=== PATIENT | female | born 1960 | race Caucasian/White ===

== ENCOUNTER 2021-03-30 15:41 | Emergency (ER) | payer MEDICAID, SELFPAY ==
[2021-03-30 15:42] VITALS: BP 175/77; PULSE 68; RESP 22; O2SAT 92; BMI 28.9
--- NOTE | 2021-03-30 16:03 | XR_ITS ---
PROCEDURE INFORMATION: Exam: XR Chest Exam date and time: 03/30/2021 4:03 PM Age: 61 years old Clinical indication: Other: Congestion TECHNIQUE: Imaging protocol: XR of the chest. Views: 1 view. COMPARISON: No relevant prior studies available. FINDINGS: Lungs: Unremarkable. No consolidation. Granulomatous change. Coarse interstitial lung markings. Pleural spaces: Unremarkable. No pleural effusion. No pneumothorax. Heart/Mediastinum: Unremarkable. No cardiomegaly. Bones/joints: Unremarkable. Tracheostomy tube in place. IMPRESSION: No acute findings.
[2021-03-30 16:25] LABS: Coronavirus 19, PCR Not Detected (NotDetected); Influenza A, PCR Not Detected (NotDetected); Influenza B, PCR Not Detected (NotDetected)
[2021-03-30 16:28] LABS: Basophils # 0.1 K/mm3 (0-0.2); Basophils % 1.2 % (0.1-2.0); Eosinophils # 0.4 K/mm3 (0.0-0.4); Eosinophils % 8.4 % (0.1-12.0); Hematocrit 41.2 % (37.0-47.0); Hemoglobin 13.4 g/dL (12.2-16.2); Lymphocytes # 1.3 K/mm3 (0.7-4.5); Lymphocytes % 26.7 % (10-50); Mean Corpuscular HGB Conc 32.5 g/dL (31.8-35.4); Mean Corpuscular Hemoglobin 32.1 pg (27.0-31.2); Mean Corpuscular Volume 98.8 fl (81-99); Monocytes # 0.3 K/mm3 (0.1-1.0); Monocytes % 5.8 % (1.7-9.3); Neutrophils # 2.9 K/mm3 (1.8-7.8); Neutrophils % 57.9 % (37.0-80.0); Platelet Count 172 K/mm3 (142-424); Red Blood Count 4.17 M/mm3 (4.20-5.40); Red Cell Distribution Width 14.2 % (11.5-17.5)
[2021-03-30 16:36] LABS: Chloride 107 mmol/L (98-107)
[2021-03-30 16:37] LABS: Potassium 4.1 mmoL/L (3.5-5.1); Sodium 140 mmol/L (136-145)
[2021-03-30 16:39] LABS: Alanine Aminotransferase 26 U/L (12-78); Alkaline Phosphatase 140 U/L (38-126); Anion Gap 12.1 mEq/L (5-15); Aspartate Amino Transferase 29 U/L (14-36); Bilirubin,Total 0.6 mg/dl (0.2-1.3); Blood Urea Nitrogen 21 mg/dl (7-17); Carbon Dioxide 25 mmol/L (22.0-30.0); Creatinine Clearance Estimated 67 mL/min (50-200); Estimated Glomerular Filt Rate 125 ml/min (>60); GFR (African American) 151 ML/MIN (>60)
[2021-03-30 16:40] LABS: Albumin Level 4.2 g/dl (3.5-5.0); Albumin/Globulin Ratio 1.2 (1.1-1.8); Calcium 9.4 mg/dl (8.4-10.2); Globulin 3.5 g/dL (1.3-3.2); Glucose 100 mg/dl (74-100); Total Protein,Serum 7.7 g/dl (6.3-8.2)
--- NOTE | 2021-03-30 16:50 | HMH.EDGENADL ---
ED Disposition Clinical Impression: Congestion of respiratory tract Disposition: Home, Self-Care Condition on Discharge: Good Additional Instructions: Sputum culture was sent, results should be available within 2 to 3 days. Suction tracheostomy as needed. Call primary care provider for further care. Referrals: Provider,Referral, [Primary Care Provider] - - Critical Care Critical Care Time: No Attestation: On 03/30/21, the high probability of a clinically significant, sudden or life threatening deterioration of the following system(s) required my full and direct attention, intervention and personal management. The time I documented below is in addition to time spent performing reported procedures but includes the following listed in this critical care notation. Medical Decision Making - Jeremías Inquiry Pt receiving controlled substance: No Vital Signs: 03/30/21 15:42 03/30/21 17:04 03/30/21 17:10 Temperature 98.7 F Temperature Source Rectal Pulse Rate 85 Pulse Rate [Left Radial] 68 Respiratory Rate 22 Blood Pressure [Right Arm] 175/77 H Blood Pressure Mean [Right Arm] 109 Blood Pressure Source [Right Arm] Automatic Cuff Blood Pressure Position [Right Arm] Sitting 02 Sat by Pulse Oximetry 92 L Oxygen Delivery Method Trach Collar/ Tube Oxygen Flow Rate (LPM) 4 - Lab Data Lab Results 03/30/21 16:05: SARS-CoV-2 (PCR) Not detected, Influenza A Untype (PCR) Not detected, Influenza Type B (PCR) Not detected 03/30/21 16:15: WBC 5.0, RBC 4.17 L, Hgb 13.4, Hct 41.2, MCV 98.8, MCH 32.1 H, MCHC 32.5, RDW 14.2, Plt Count 172, MPV 9.0, Neut % (Auto) 57.9, Lymph % (Auto) 26.7, [place] % (Auto) 5.8, Eos % (Auto) 8.4, Baso % (Auto) 1.2, Neut # (Auto) 2.9, Lymph # (Auto) 1.3, [place] # (Auto) 0.3, Eos # (Auto) 0.4, Baso # (Auto) 0.1 03/30/21 16:15: Sodium 140, Potassium 4.1, Chloride 107, Carbon Dioxide 25, Anion Gap 12.1, BUN 21 H, Creatinine 0.50 L, Estimated Creat Clear 67, Estimated GFR 125, Est GFR ( Amer) 151, Glucose 100, Calcium 9.4, Total Bilirubin 0.6, AST 29, ALT 26, Alkaline Phosphatase 140 H, Total Protein 7.7, Albumin 4.2, Globulin 3.5 H, Albumin/Globulin Ratio 1.2 Result diagrams: 03/30/21 16:15 03/30/21 16:15 Orders (Tests/Meds): ED MEDICATIONS Generic Name Dose Route Start Last Admin Trade Name Freq PRN Reason Stop Dose Admin Sodium Chloride 3 ml 03/30/21 17:01 Sodium Chloride 3% 15ml [facility] 04/29/21 17:00 ONCE PRN INDUCE SPUTUM COLLECTION Discontinued Medications Generic Name Dose Route Start Last Admin Trade Name Freq PRN Reason Stop Dose Admin Albuterol/Ipratropium 3 ml 03/30/21 16:57 03/30/21 17:10 Ipratropium/Albuterol 3 Ml [facility] 03/30/21 16:58 3 ml ONCE ONE Administration ORDERS Category Date Time Status Sputum Culture & Gram Stain Stat Micro 03/30/21 17:05 Results - Radiology Data #1 Image(s): Chest Image Reviewed: Yes I reviewed the patient's radiology image, Yes I have reviewed radiologist's interpretation PROCEDURE INFORMATION: Exam: XR Chest Exam date and time: 03/30/2021 4:03 PM Age: 61 years old Clinical indication: Other: Congestion TECHNIQUE: Imaging protocol: XR of the chest. Views: 1 view. COMPARISON: No relevant prior studies available. FINDINGS: Lungs: Unremarkable. No consolidation. Granulomatous change. Coarse interstitial lung markings. Pleural spaces: Unremarkable. No pleural effusion. No pneumothorax. Heart/Mediastinum: Unremarkable. No cardiomegaly. Bones/joints: Unremarkable. Tracheostomy tube in place. IMPRESSION: No acute findings. Medical Decision Narrative: No findings of pneumonia on chest x-ray. Normal WBC. Sputum culture sent. She will return to long-term with suctioning of tracheostomy as needed. General Adult HPI - General Chief complaint: Weakness Stated comp
[2021-03-30 17:04] VITALS: TEMP 37.1
[2021-03-30 17:10] VITALS: PULSE 85
--- NOTE | 2021-03-30 17:24 | PC.NURSE ---
Respiratory obtained sputum sample.
[2021-03-30 20:11] VITALS: BP 169/72; PULSE 62; RESP 22; TEMP 37.1; O2SAT 95
== END 2021-03-30 20:14 | disposition home or self-care (01) ==
PROVIDERS: Emergency Provider Emergency Medicine
DX: J98.8 Other specified respiratory disorders (principal); R06.2 Wheezing; Z93.0 Tracheostomy status
CPT/HCPCS: 71045; 80053; 85025; 87070; 87077; 87186; 87205; 99283; C9803; U0003; U0005

== ENCOUNTER → 2021-03-31 14:24 | Outpatient (CLI) | payer MEDICAID, SELFPAY ==
--- NOTE | 2021-03-31 14:27 | FL_ITS ---
PROCEDURE: FL FEEDING TUBE CLINICAL INDICATION: replaced feeeding tube COMPARISON: None FINDINGS: Fluoro time: 22 seconds. Percutaneous gastrostomy tube is present on the roundhouse firer/fireman image. Approximately 20 cc of mixture of Gastrografin and water was injected into the feeding tube which did appear to be in good position in the region of the body of the stomach. There is no evidence of contrast extravasation. IMPRESSION: Good position of the percutaneous gastrostomy tube with no contrast extravasation Dictated by: Sunday Garner MD 03/31/2021 16:16 Sunday Garner MD in [place] 03/31/2021 16:16
== END ==
PROVIDERS: PCP Family Medicine; Visit Provider Surgery
DX: Z46.59 Encounter for fitting and adjustment of other gastrointestinal appliance and device (principal)
CPT/HCPCS: 49465

== ENCOUNTER 2021-07-04 21:46 | Emergency (ER) | payer MEDICAID, SELFPAY ==
[2021-07-04 21:46] VITALS: BP 128/83; PULSE 93; RESP 21; O2SAT 95
--- NOTE | 2021-07-04 22:17 | XR_ITS ---
PROCEDURE INFORMATION: Exam: XR Chest Exam date and time: 07/04/2021 10:17 PM Age: 61 years old Clinical indication: Shortness of breath and wheezing; Additional info: SOA, wheezing TECHNIQUE: Imaging protocol: XR of the chest. Views: 1 view. COMPARISON: CR XR CHEST PORTABLE 03/30/2021 4:15 PM FINDINGS: Tubes, catheters and devices: The tracheostomy tube is unchanged. There is a catheter projecting over the right side of the neck and right chest/abdomen. Lungs: Low lung volumes. No focal consolidations or infiltrates. Pleural spaces: Unremarkable. No pleural effusion. No pneumothorax. Heart/Mediastinum: Unremarkable. No cardiomegaly. Bones/joints: Unremarkable. IMPRESSION: No acute cardiopulmonary findings.
--- NOTE | 2021-07-04 22:20 | ECG_ITS ---
APPROVED REPORT Exam: Resting ECG HR:92 bpm ECG Measurements Heart Rate 92 AXES NM 127 P 46 QRSd 77 QRS 7 QT 347 T 27 QTc 397 Conclusion SINUS RHYTHM LOW QRS VOLTAGE IN PRECORDIAL LEADS [QRS DEFLECTION < 1.0 mV IN CHEST LEADS] NONSPECIFIC T-WAVE ABNORMALITY BORDERLINE ECG UNCONFIRMED REPORT Electronically signed by : Momo Ackerman MD 07/05/2021 22:22:11
[2021-07-04 22:31] VITALS: BP 207/116; PULSE 97; RESP 18; O2SAT 97
[2021-07-04 22:43] LABS: Basophils % 0.7 % (0.1-2.0); Eosinophils # 0.4 K/mm3 (0.0-0.4); Hematocrit 42.9 % (37.0-47.0); Hemoglobin 13.5 g/dL (12.2-16.2); Lymphocytes # 1.5 K/mm3 (0.7-4.5); Lymphocytes % 23.1 % (10-50); Mean Corpuscular HGB Conc 31.5 g/dL (31.8-35.4); Mean Corpuscular Hemoglobin 31.6 pg (27.0-31.2); Mean Corpuscular Volume 100.5 fl (81-99); Mean Platelet Volume 8.9 fl (7.4-10.4); Monocytes # 0.5 K/mm3 (0.1-1.0); Monocytes % 7.6 % (1.7-9.3); Neutrophils # 4.1 K/mm3 (1.8-7.8); Neutrophils % 62.7 % (37.0-80.0); Platelet Count 189 K/mm3 (142-424); Red Blood Count 4.27 M/mm3 (4.20-5.40); Red Cell Distribution Width 14.2 % (11.5-17.5); White Blood Count 6.5 K/mm3 (4.8-10.8)
[2021-07-04 22:59] LABS: Alanine Aminotransferase 30 U/L (12-78); Albumin Level 4.7 g/dl (3.5-5.0); Albumin/Globulin Ratio 1.4 (1.1-1.8); Alkaline Phosphatase 141 U/L (38-126); Anion Gap 14.2 mEq/L (5-15); Aspartate Amino Transferase 35 U/L (14-36); Bilirubin,Total 0.7 mg/dl (0.2-1.3); Blood Urea Nitrogen 32 mg/dl (7-17); Calcium 10.2 mg/dl (8.4-10.2); Carbon Dioxide 26 mmol/L (22.0-30.0); Chloride 105 mmol/L (98-107); Creatinine Clearance Estimated 2 mL/min (50-200); Estimated Glomerular Filt Rate 101 ml/min (>60); GFR (African American) 122 ML/MIN (>60); Globulin 3.3 g/dL (1.3-3.2); Glucose 109 mg/dl (74-100); Potassium 4.2 mmoL/L (3.5-5.1); Sodium 141 mmol/L (136-145)
[2021-07-04 23:01] VITALS: BP 214/121; PULSE 96; RESP 18; O2SAT 96
[2021-07-04 23:05] LABS: C-Reactive Protein 52.9 mg/L (0-4)
[2021-07-04 23:15] LABS: Troponin I < 0.01 ng/ml (0.00-0.034)
[2021-07-04 23:19] LABS: Erythrocyte Sedimentation Rate 61 mm/hr (0-30); Procalcitonin 0.118 ng/mL (0.0-2.0)
[2021-07-04 23:22] LABS: Coronavirus 19, PCR Not Detected (NotDetected); Influenza A, PCR Not Detected (NotDetected); Influenza B, PCR Not Detected (NotDetected)
--- NOTE | 2021-07-04 23:25 | HMH.EDSOB ---
ED Disposition Clinical Impression: Acute exacerbation of chronic obstructive airways disease Disposition: Home, Self-Care Condition on Discharge: Fair Instructions: DI for Chronic Obstructive Pulmonary Disease Additional Instructions: use meds and check cultures Prescriptions: cephALEXin [cephALEXin 500mg capsule*] 500 mg PO TID #30 cap Prescription Printed clindamycin HCL [Cleocin HCl] 300 mg PO TID #30 cap Prescription Printed Referrals: Zelalem Boykin [Primary Care Provider] - - Critical Care Critical Care Time: No Attestation: On 07/04/21, the high probability of a clinically significant, sudden or life threatening deterioration of the following system(s) required my full and direct attention, intervention and personal management. The time I documented below is in addition to time spent performing reported procedures but includes the following listed in this critical care notation. Medical Decision Making - Medical Records Medical records reviewed: Yes: I reviewed the patient's medical records. - Jeremías Inquiry Pt receiving controlled substance: No Vital Signs: 07/04/21 21:46 07/04/21 22:31 07/04/21 23:01 Temperature Temperature Source Pulse Rate 97 H 96 H Pulse Rate [Right] 93 H Respiratory Rate 21 18 18 Blood Pressure 207/116 H 214/121 H Blood Pressure [Right Arm] 128/83 Blood Pressure Mean 146 152 Blood Pressure Mean [Right Arm] 98 02 Sat by Pulse Oximetry 95 97 96 Oxygen Delivery Method Trach Collar/ Tube Oxygen Flow Rate (LPM) 3 07/04/21 23:27 07/04/21 23:31 07/05/21 00:01 Temperature 99.8 F H Temperature Source Rectal Pulse Rate 94 H 94 H Pulse Rate [Right] Respiratory Rate 18 18 Blood Pressure 226/65 H 212/93 H Blood Pressure [Right Arm] Blood Pressure Mean 121 132 Blood Pressure Mean [Right Arm] 02 Sat by Pulse Oximetry 96 96 Oxygen Delivery Method Oxygen Flow Rate (LPM) - Lab Data Lab results reviewed: Yes: I reviewed the patient's lab results. Lab Results 07/04/21 22:24: WBC 6.5, RBC 4.27, Hgb 13.5, Hct 42.9, MCV 100.5 H, MCH 31.6 H, MCHC 31.5 L, RDW 14.2, Plt Count 189, MPV 8.9, Neut % (Auto) 62.7, Lymph % (Auto) 23.1, [place] % (Auto) 7.6, Eos % (Auto) 6.0, Baso % (Auto) 0.7, Neut # (Auto) 4.1, Lymph # (Auto) 1.5, [place] # (Auto) 0.5, Eos # (Auto) 0.4, Baso # (Auto) 0.0, ESR 61 H 07/04/21 22:24: Sodium 141, Potassium 4.2, Chloride 105, Carbon Dioxide 26, Anion Gap 14.2, BUN 32 H, Creatinine 0.60, Estimated Creat Clear 2, Estimated GFR 101, Est GFR ( Amer) 122, Glucose 109 H, Calcium 10.2, Total Bilirubin 0.7, AST 35, ALT 30, Alkaline Phosphatase 141 H, Troponin I < 0.01, C-Reactive Protein 52.9 H, Total Protein 8.0, Albumin 4.7, Globulin 3.3 H, Albumin/Globulin Ratio 1.4, Procalcitonin 0.118 07/04/21 22:24: Lactate 1.0 07/04/21 22:50: SARS-CoV-2 (PCR) Not detected, Influenza A Untype (PCR) Not detected, Influenza Type B (PCR) Not detected 07/04/21 23:27: Specimen Source R/r, O2 % 35, ABG pH 7.42, ABG pCO2 36.2, ABG pO2 80.9, ABG HCO3 22.8, ABG Total CO2 24.0, ABG O2 Saturation 96, ABG Base Excess -1.7, Sunday Test Y 07/04/21 23:34: Urine Color Yellow, Urine Appearance Clear, Urine pH 5.5, Ur Specific [place] >= 1.030, Urine Protein Trace, Urine Glucose (UA) Negative, Urine Ketones Negative, Urine Blood Negative, Urine Nitrate Negative, Urine Bilirubin Negative, Urine Urobilinogen 0.2, Ur Leukocyte Esterase Negative, Urine WBC 3-5, Ur Squamous Epith Cells 3-5, Urine Bacteria 1+ Result diagrams: 07/04/21 22:24 07/04/21 22:24 Orders (Tests/Meds): ED MEDICATIONS Generic Name Dose Route Start Last Admin Trade Name Freq PRN Reason Stop Dose Admin Ceftriaxone Sodium 1 gm/ 50 mls @ 100 mls/hr 07/05/21 01:15 Sodium Chloride IV 07/19/21 01:14 Q24H RACHEL Sodium Chloride 3 ml 07/04/21 22:21 Sodium Chloride 3% 15ml Neb I[facility] 08/03/21 22:20 ONCE PRN INDUCE SPUTUM COLLECTION Discontinued Medications Jaylin
[2021-07-04 23:27] VITALS: TEMP 37.7
[2021-07-04 23:31] VITALS: BP 226/65; PULSE 94; RESP 18; O2SAT 96
--- NOTE | 2021-07-04 23:31 | PC.NURSE ---
SPUTUM SENT TO LAB
[2021-07-04 23:41] LABS: Appearance,Urine CLEAR (Clear); Bilirubin,Urine Negative (Negative); Blood, Urine Negative (Negative); Color,Urine YELLOW (Yellow); Glucose,Urine (UA) Negative (Negative); Ketones,Urine Negative (Negative); Leukocyte Esterase,Urine Negative (Negative); Microscopic, Urine URINE MICROSCOPIC (MICROSCOPIC); Nitrate,Urine Negative (Negative); PH,Urine 5.5 (5.0-8.5); Protein,Urine TRACE (Negative); Specific Gravity, Urine >= 1.030 (1.005-1.030); Urobilinogen,Urine 0.2 EU/dl (0.2)
[2021-07-04 23:47] LABS: ABG Base Excess -1.7 mmol/L (-2.4-2.3); ABG HCO3 22.8 mmhg (22.0-26.0); ABG Oxygen Saturation 96 % (90-100); ABG PCO2 36.2 mmhg (35.0-45.0); ABG PH 7.42 mmol/L (7.35-7.45); ABG PO2 80.9 mmhg (80-100)
[2021-07-04 23:48] LABS: Allen's Test Y; Oxygen 35 %; Source R/R
[2021-07-05 00:01] VITALS: BP 212/93; PULSE 94; RESP 18; O2SAT 96
[2021-07-05 00:44] LABS: Bacteria,Urine 1+ /lpf
[2021-07-05 01:35] VITALS: BP 135/86; PULSE 92; RESP 18; TEMP 37.2; O2SAT 96
== END 2021-07-05 02:04 | disposition home or self-care (01) ==
PROVIDERS: Emergency Provider Emergency Medicine; PCP Family Medicine
DX: J44.1 Chronic obstructive pulmonary disease with (acute) exacerbation (principal); F03.90 Unspecified dementia, unspecified severity, without behavioral disturbance, psychotic disturbance, mood disturbance, and anxiety; Z20.822 Contact with and (suspected) exposure to COVID-19
CPT/HCPCS: 36415; 71045; 80053; 81001; 82803; 83605; 84145; 84484; 85025; 85651; 86140; 87040; 87070; 87077; 87186; 87205; 93005; 96365; 96375; 99285; C9803; J0696; U0003; U0005

== ENCOUNTER 2021-07-11 16:57 | Emergency (ER) | payer MEDICAID, SELFPAY ==
--- NOTE | 2021-07-11 17:01 | HMH.EDGENADL ---
ED Disposition Clinical Impression: History of vomiting Disposition: Home, Self-Care Condition on Discharge: Good Additional Instructions: follow up pcp - Critical Care Critical Care Time: No Attestation: On , the high probability of a clinically significant, sudden or life threatening deterioration of the following system(s) required my full and direct attention, intervention and personal management. The time I documented below is in addition to time spent performing reported procedures but includes the following listed in this critical care notation. Medical Decision Making - Medical Records Medical records reviewed: Yes: I reviewed the patient's medical records. - Jeremías Inquiry Pt receiving controlled substance: No Vital Signs: 07/11/21 17:11 07/11/21 17:30 07/11/21 18:00 Temperature 98.5 F Temperature Source Oral Pulse Rate 86 89 Pulse Rate [Left Radial] 87 Respiratory Rate 20 Blood Pressure 163/80 H 123/80 Blood Pressure [Right Arm] 146/76 H Blood Pressure Mean [Right Arm] 99 Blood Pressure Source Automatic Cuff Automatic Cuff Blood Pressure Source [Right Arm] Automatic Cuff Blood Pressure Position Sitting Sitting Blood Pressure Position [Right Arm] Supine 02 Sat by Pulse Oximetry 97 98 96 Oxygen Delivery Method Room Air Trach Collar/ Tube Trach Collar/ Tube - Lab Data Lab Results 07/11/21 17:26: WBC 7.6, RBC 4.30, Hgb 13.8, Hct 43.2, MCV 100.4 H, MCH 32.0 H, MCHC 31.8, RDW 14.2, Plt Count 230, MPV 9.2, Neut % (Auto) 66.0, Lymph % (Auto) 25.8, [place] % (Auto) 4.1, Eos % (Auto) 3.0, Baso % (Auto) 1.0, Neut # (Auto) 5.0, Lymph # (Auto) 2.0, [place] # (Auto) 0.3, Eos # (Auto) 0.2, Baso # (Auto) 0.1 07/11/21 17:26: Sodium 143, Potassium 4.4, Chloride 110 H, Carbon Dioxide 24, Anion Gap 13.4, BUN 29 H, Creatinine 0.70, Estimated Creat Clear 67, Estimated GFR 85, Est GFR ( Amer) 102, Glucose 115 H, Calcium 9.7, Total Bilirubin 0.4, AST 24, ALT 27, Alkaline Phosphatase 124, Total Protein 8.2, Albumin 4.5, Globulin 3.7 H, Albumin/Globulin Ratio 1.2 07/11/21 17:29: Stool Occult Blood Negative Result diagrams: 07/11/21 17:26 07/11/21 17:26 Orders (Tests/Meds): ORDERS Category Date Time Status Covid-19 Nasal PCR ([facility]) Routine Lab 07/11/21 17:02 Received Medical Decision Narrative: reeval, stable exam and vitals, no source for bleeding General Adult HPI - General Stated complaint: gi bleed Time Seen by Provider: 07/11/21 17:01 Source of Information: EMS Limitations: Physical Limitations - History of Present Illness HPI narrative: from [place] limited history due to pt baseline ms reports of coffee ground emesis , nothing further Radiation: non-radiation Severity: mild Relieving factors: none Exacerbating factors: none Associated symptoms: denies other symptoms - Related Data Home Medications Medication Instructions Recorded Confirmed acetaminophen 500 mg capsule 500 mg PO Q6H PRN 03/31/21 03/31/21 amantadine HCl 50 mg/5 mL oral 100 mg PO DAILY 03/31/21 03/31/21 solution baclofen 5 mg tablet 5 mg PO TID 03/31/21 03/31/21 docusate sodium 100 mg capsule 100 mg PO DAILY 03/31/21 03/31/21 guaifenesin 200 mg/5 mL oral liquid 200 mg PO Q4H PRN 03/31/21 03/31/21 heparin (porcine) 5,000 unit/mL 5,000 unit SQ Q12H 03/31/21 03/31/21 injection solution hyoscyamine sulfate 0.125 mg/mL 1 ml PO QAC 03/31/21 03/31/21 oral drops senna-docusate sodium capsule cap PO 03/31/21 Previous Rx's Medication Instructions Recorded cephALEXin [cephALEXin 500mg 500 mg PO TID #30 cap 07/05/21 capsule*] clindamycin HCL [Cleocin HCl] 300 mg PO TID #30 cap 07/05/21 Allergies Allergy/AdvReac Type Severity Reaction Status Date / Time No Known Allergies Allergy Verified 03/31/21 14:04 [facility] History - Hepatitis A Screen Attestation statement:: This patient has been screened for Hepatitis A risk factors. Medical History: Reports:: Dementia Othe
--- NOTE | 2021-07-11 17:02 | XR_ITS ---
PROCEDURE INFORMATION: Exam: XR Chest Exam date and time: 07/11/2021 5:02 PM Age: 61 years old Clinical indication: Cough; Patient HX: Patient has paralysis: Unable to move or hold arms out of the way TECHNIQUE: Imaging protocol: XR of the chest. Views: 1 view. COMPARISON: CR XR CHEST PORTABLE 07/04/2021 10:29 PM FINDINGS: Tubes, catheters and devices: Tracheostomy tube is again noted as well as ventriculoperitoneal shunt tubing. Lungs: Lungs are hypoinflated. No focal consolidation is apparent. Pleural spaces: No pleural effusion. Heart/Mediastinum: No cardiomegaly. Bones/joints: Scoliosis and skeletal degeneration are again noted. IMPRESSION: Stable appearance of chest without x-ray evidence of pneumonia or congestive heart failure.
[2021-07-11 17:11] VITALS: BP 146/76; PULSE 87; RESP 20; TEMP 36.9; O2SAT 97; BMI 30.8
[2021-07-11 17:30] VITALS: BP 163/80; PULSE 86; O2SAT 98
[2021-07-11 17:47] LABS: Basophils # 0.1 K/mm3 (0-0.2); Eosinophils # 0.2 K/mm3 (0.0-0.4); Hematocrit 43.2 % (37.0-47.0); Hemoglobin 13.8 g/dL (12.2-16.2); Lymphocytes % 25.8 % (10-50); Mean Corpuscular HGB Conc 31.8 g/dL (31.8-35.4); Mean Corpuscular Volume 100.4 fl (81-99); Mean Platelet Volume 9.2 fl (7.4-10.4); Monocytes # 0.3 K/mm3 (0.1-1.0); Monocytes % 4.1 % (1.7-9.3); Platelet Count 230 K/mm3 (142-424); Red Cell Distribution Width 14.2 % (11.5-17.5); White Blood Count 7.6 K/mm3 (4.8-10.8)
[2021-07-11 17:49] LABS: Occult Blood,Stool Negative (Negative)
[2021-07-11 17:58] LABS: Chloride 110 mmol/L (98-107); Potassium 4.4 mmoL/L (3.5-5.1); Sodium 143 mmol/L (136-145)
[2021-07-11 18:00] VITALS: BP 123/80; PULSE 89; O2SAT 96
[2021-07-11 18:00] LABS: Alanine Aminotransferase 27 U/L (12-78); Blood Urea Nitrogen 29 mg/dl (7-17); Creatinine Clearance Estimated 67 mL/min (50-200); Estimated Glomerular Filt Rate 85 ml/min (>60); GFR (African American) 102 ML/MIN (>60)
[2021-07-11 18:01] LABS: Albumin Level 4.5 g/dl (3.5-5.0); Albumin/Globulin Ratio 1.2 (1.1-1.8); Alkaline Phosphatase 124 U/L (38-126); Anion Gap 13.4 mEq/L (5-15); Aspartate Amino Transferase 24 U/L (14-36); Bilirubin,Total 0.4 mg/dl (0.2-1.3); Calcium 9.7 mg/dl (8.4-10.2); Carbon Dioxide 24 mmol/L (22.0-30.0); Globulin 3.7 g/dL (1.3-3.2); Glucose 115 mg/dl (74-100); Total Protein,Serum 8.2 g/dl (6.3-8.2)
[2021-07-11 18:50] VITALS: BP 146/78; PULSE 87; RESP 20; TEMP 37.2; O2SAT 97
== END 2021-07-11 19:29 | disposition home or self-care (01) ==
PROVIDERS: Emergency Provider Emergency Medicine; PCP Family Medicine
DX: K92.2 Gastrointestinal hemorrhage, unspecified (principal)
CPT/HCPCS: 71045; 80053; 82272; 85025; 99283; C9803; G0328; U0003; U0005

== ENCOUNTER 2021-07-14 08:10 | Emergency (ER) | payer MEDICAID, SELFPAY ==
[2021-07-14 08:10] VITALS: BP 144/54; PULSE 83; RESP 16; TEMP 36.1; O2SAT 98; BMI 30.1
--- NOTE | 2021-07-14 08:14 | HMH.EDGENADL ---
ED Disposition Clinical Impression: Coffee ground emesis Disposition: Home, Self-Care Condition on Discharge: Good Additional Instructions: Dr. Boykin states that he will see the patient on rounds tomorrow for further care. No change in medications at this time. Referrals: Provider,Referral, [Primary Care Provider] - - Critical Care Critical Care Time: No Attestation: On , the high probability of a clinically significant, sudden or life threatening deterioration of the following system(s) required my full and direct attention, intervention and personal management. The time I documented below is in addition to time spent performing reported procedures but includes the following listed in this critical care notation. Medical Decision Making - Jeremías Inquiry Pt receiving controlled substance: No Vital Signs: 07/14/21 08:10 07/14/21 08:38 07/14/21 09:44 Temperature 97 F L Temperature Source Rectal Pulse Rate 87 84 Pulse Rate [Radial] 83 Respiratory Rate 16 17 Blood Pressure 145/65 H Blood Pressure [Right Arm] 144/54 H Blood Pressure Mean [Right Arm] 84 Blood Pressure Position [Right Arm] Sitting 02 Sat by Pulse Oximetry 98 94 L Oxygen Delivery Method Trach Collar/ Tube Oxygen Flow Rate (LPM) 6 - Lab Data Lab Results 07/14/21 08:12: Gastric Occult Blood Positive 07/14/21 08:20: Stool Occult Blood Negative 07/14/21 08:36: WBC 8.5, RBC 4.37, Hgb 13.8, Hct 43.5, MCV 99.4 H, MCH 31.5 H, MCHC 31.7 L, RDW 14.3, Plt Count 220, MPV 9.2, Neut % (Auto) 68.9, Lymph % (Auto) 22.3, [place] % (Auto) 4.4, Eos % (Auto) 3.7, Baso % (Auto) 0.7, Neut # (Auto) 5.9, Lymph # (Auto) 1.9, [place] # (Auto) 0.4, Eos # (Auto) 0.3, Baso # (Auto) 0.1 07/14/21 08:36: Sodium 144, Potassium 4.3, Chloride 110 H, Carbon Dioxide 25, Anion Gap 13.3, BUN 34 H, Creatinine 0.70, Estimated Creat Clear 70, Estimated GFR 85, Est GFR ( Amer) 102, Glucose 121 H, Calcium 9.9, Total Bilirubin 0.4, AST 27, ALT 29, Alkaline Phosphatase 132 H, Total Protein 8.0, Albumin 4.7, Globulin 3.3 H, Albumin/Globulin Ratio 1.4 07/14/21 08:36: Lipase 34 07/14/21 08:36: PT 11.5, INR 1.02, APTT 26.2 Result diagrams: 07/14/21 08:36 07/14/21 08:36 Orders (Tests/Meds): ED MEDICATIONS Generic Name Dose Route Start Last Admin Trade Name Freq PRN Reason Stop Dose Admin Sodium Chloride 3 ml 07/14/21 10:15 Sodium Chloride 3% 15ml Neb IH 08/13/21 10:14 ONCE PRN INDUCE SPUTUM COLLECTION ORDERS Category Date Time Status Urinalysis-Acute [Urinalysis and Microscopic] Stat Lab 07/14/21 08:26 Ordered Sputum Culture & Gram Stain Stat Micro 07/14/21 10:29 Received - Radiology Data #1 Image(s): Chest Image Reviewed: Yes I have reviewed radiologist's interpretation FINAL REPORT CLINICAL HISTORY: vomiting COMPARISON: July 11, 2021 FINDINGS: The patient is rotated to the right. A tracheostomy tube is present. The heart size is normal. The mediastinum is normal. The lungs are underinflated. There is no definite infiltrate. There are no pleural effusions. There is no pneumothorax. There is no osseous abnormality. IMPRESSION: No definite infiltrate. Reviewed, Interpreted and Dictated by Cj Nuñez MD Transcribed by Jose Carrillo Authenticated by Cj Nuñez MD on 07/14/2021 10:23:23 AM [facility] - CT Data CT Scan: Abdomen, Pelvis Time Received: 10:[address] Reviewed: Yes: I have viewed the radiologist's interpretation Findings Narrative: Procedure(s): CT abdomen pelvis wo con Accession Number(s): [id number] cc: Cj Nuñez MD; Dominique Zimmerman MD; Brian Caballero MD~ FINAL REPORT TECHNIQUE: Axial images through the abdomen and pelvis were performed without contrast. This study was performed with techniques to keep radiation doses as low as reasonably achievable, (ALARA). Individualized dose reduction techniques using automated exposure control or adjustment
--- NOTE | 2021-07-14 08:26 | CT_ITS ---
FINAL REPORT TECHNIQUE: Axial images through the abdomen and pelvis were performed without contrast. This study was performed with techniques to keep radiation doses as low as reasonably achievable, (ALARA). Individualized dose reduction techniques using automated exposure control or adjustment of mA and/or kV according to the patient's size were employed. CLINICAL HISTORY: vomiting, FINDINGS: Abdomen: Atelectasis is seen in the right upper lobe and right lung base. A DERRICK OPERATOR shunt is seen looped in the anterior right hemiabdomen. A gastrostomy feeding tube is seen in the stomach. The liver parenchyma is homogeneous. There are calcified granulomas in the spleen. The pancreas and adrenals are unremarkable. There is a 6 mm nonobstructing right renal stone. Pelvis: There are stones in the dependent portion of the urinary bladder measuring up to 5 mm. The appendix is not visualized. There is no pelvic mass or inflammation. IMPRESSION: DERRICK OPERATOR shunt and gastrostomy tubes as described. Nonobstructing right renal stone. Stones in the urinary bladder. Reviewed, Interpreted and Dictated by Cj Nuñez MD Transcribed by Jose Carrillo Authenticated by Cj Nuñez MD on 07/14/2021 10:23:[address] [facility]
[2021-07-14 08:29] LABS: Occult Blood,Gastric Fluid Positive (Negative)
[2021-07-14 08:38] VITALS: BP 145/65; PULSE 87; RESP 17
--- NOTE | 2021-07-14 08:38 | XR_ITS ---
FINAL REPORT CLINICAL HISTORY: vomiting COMPARISON: July 11, 2021 FINDINGS: The patient is rotated to the right. A tracheostomy tube is present. The heart size is normal. The mediastinum is normal. The lungs are underinflated. There is no definite infiltrate. There are no pleural effusions. There is no pneumothorax. There is no osseous abnormality. IMPRESSION: No definite infiltrate. Reviewed, Interpreted and Dictated by Cj Nuñez MD Transcribed by Jose Carrillo Authenticated by Cj Nuñez MD on 07/14/2021 10:23:23 AM [facility]
[2021-07-14 08:44] LABS: Occult Blood,Stool Negative (Negative)
[2021-07-14 08:48] LABS: Basophils # 0.1 K/mm3 (0-0.2); Basophils % 0.7 % (0.1-2.0); Eosinophils # 0.3 K/mm3 (0.0-0.4); Eosinophils % 3.7 % (0.1-12.0); Hematocrit 43.5 % (37.0-47.0); Hemoglobin 13.8 g/dL (12.2-16.2); Lymphocytes # 1.9 K/mm3 (0.7-4.5); Lymphocytes % 22.3 % (10-50); Mean Corpuscular HGB Conc 31.7 g/dL (31.8-35.4); Mean Corpuscular Hemoglobin 31.5 pg (27.0-31.2); Mean Corpuscular Volume 99.4 fl (81-99); Mean Platelet Volume 9.2 fl (7.4-10.4); Monocytes # 0.4 K/mm3 (0.1-1.0); Monocytes % 4.4 % (1.7-9.3); Neutrophils # 5.9 K/mm3 (1.8-7.8); Neutrophils % 68.9 % (37.0-80.0); Platelet Count 220 K/mm3 (142-424); Red Blood Count 4.37 M/mm3 (4.20-5.40); Red Cell Distribution Width 14.3 % (11.5-17.5); White Blood Count 8.5 K/mm3 (4.8-10.8)
[2021-07-14 08:55] LABS: Lipase 34 U/L (23-300)
[2021-07-14 08:56] LABS: Alanine Aminotransferase 29 U/L (12-78); Albumin Level 4.7 g/dl (3.5-5.0); Albumin/Globulin Ratio 1.4 (1.1-1.8); Alkaline Phosphatase 132 U/L (38-126); Anion Gap 13.3 mEq/L (5-15); Aspartate Amino Transferase 27 U/L (14-36); Bilirubin,Total 0.4 mg/dl (0.2-1.3); Blood Urea Nitrogen 34 mg/dl (7-17); Calcium 9.9 mg/dl (8.4-10.2); Carbon Dioxide 25 mmol/L (22.0-30.0); Chloride 110 mmol/L (98-107); Creatinine Clearance Estimated 70 mL/min (50-200); Estimated Glomerular Filt Rate 85 ml/min (>60); GFR (African American) 102 ML/MIN (>60); Globulin 3.3 g/dL (1.3-3.2); Glucose 121 mg/dl (74-100); Potassium 4.3 mmoL/L (3.5-5.1); Sodium 144 mmol/L (136-145)
[2021-07-14 08:58] LABS: Activated Partial Thrombo Time 26.2 seconds (22.8-30.6); INR 1.02 (0.9-1.1); Prothrombin Time 11.5 seconds (10.1-12.5)
--- NOTE | 2021-07-14 09:08 | PC.NURSE ---
Patient to radiology by stretcher with [employer]
--- NOTE | 2021-07-14 09:31 | PC.NURSE ---
Patient back from Radiology with geologic technician; MARISEL Stephenson at bedside
[2021-07-14 09:44] VITALS: PULSE 84; O2SAT 94
--- NOTE | 2021-07-14 10:12 | PC.NURSE ---
Respiratory at bedside to suction patient
--- NOTE | 2021-07-14 11:00 | PC.NURSE ---
g-tube flushed with 30cc water, flushed easily. unable to pull contents from g-tube.
--- NOTE | 2021-07-14 11:13 | PC.NURSE ---
[facility] aware of patient transfer
[2021-07-14 11:14] VITALS: BP 140/56; PULSE 89; RESP 16
--- NOTE | 2021-07-14 11:30 | PC.NURSE ---
report called to hunter dueñas
[2021-07-14 11:57] VITALS: BP 144/92; PULSE 88
[2021-07-14 13:01] VITALS: BP 140/90; PULSE 88; RESP 16; TEMP 36.7; O2SAT 95
== END 2021-07-14 13:02 | disposition home or self-care (01) ==
PROVIDERS: Emergency Provider Emergency Medicine
DX: R11.10 Vomiting, unspecified (principal); F03.90 Unspecified dementia, unspecified severity, without behavioral disturbance, psychotic disturbance, mood disturbance, and anxiety; Z93.0 Tracheostomy status; Z93.1 Gastrostomy status
CPT/HCPCS: 71045; 74176; 80053; 82272; 83690; 85025; 85610; 85730; 87070; 87077; 87186; 87205; 99283; G0328